=== PATIENT | male | born 1985 | race Caucasian/White ===

== ENCOUNTER 2016-12-29 11:11 | Emergency (ER) | payer OTHER ==
[2016-12-29 11:31] VITALS: BP 134/60
[2016-12-29] MEDS ORDERED: Lidocaine 1% INJ* 10 MG/ML 30 ML SDV INJ ONE (12:29)
[2016-12-29] MEDS ORDERED: Lidocaine 1% MPF* 2 ML VIAL ONE (12:31)
--- NOTE | 2016-12-29 14:38 | UC ---
Ciro Peters Billy, [facility] on 12/29/16 at 1223 . Skin Complaint HPI - HPI Summary HPI Summary: In Room Note: Patient is a 31 year-old male coming to [facility] [place] of a wound on his right arm. He states that approximately 4 days ago, he was sitting on the couch at home and felt a bite on his right upper arm, although he is unsure what, if anything, bit him at the time. Several days later, he identified two Bold Jumping Spiders coming down from the ceiling above the couch. Since the initial "bite," the right arm has become raised, red, and there is now purulent discharge. The patient denies any fever. He states that his skin feels like a sunburn. He was recently prescribed amoxicillin following a dental procedure, and he has taken 4 doses in the last 2 days. Note: Temperature 100.4F. BP 134/60. Pulse ox 90% O2 sat. Previous visits noncontributory to current complaint. Patient is not on anti-hypertension medication. Nurse's Note: Pt states on approx 12/26/16, pt felt a prick in his right upper arm and is unsure of what bit him. Pt states he notice 2 other spiders in the same spot that he identified as Bold Jumping Spider. Pt states the bite blaze has raised, getting larger, reder and now has puss. Pt denies fever. Pt states his arm feels like a sunburn. Pt states he started taking left over amxoicillian from having tooth pulled. - History of Current Complaint Chief Complaint: UCWounds Time Seen by Provider: 12/29/16 12:16 Stated Complaint: BUG BITE-BIG LUMP Hx Obtained From: Patient Onset/Duration: Gradual Onset, Lasting Days, Still Present Skin Exposure Onset/Duration: Days Ago Timing: Constant Onset Severity: Moderate Current Severity: Moderate Pain Intensity: 2 Pain Scale Used: 0-10 Numeric Location: Other - Right upper arm Character: Pruritus, Redness, Raised, Painful Aggravating: Nothing Alleviating: Nothing Associated Signs & Symptoms: Negative: Fever - Allergy/Home Medications Allergies/Adverse Reactions: Allergies Allergy/AdvReac Type Severity Reaction Status Date / Time Theodorine Sprinkles Allergy Unknown Uncoded 12/29/16 11:31 Reaction Details Home Medications: Home Medications Amoxicillin (*) [Amoxicillin 875 MG (*)] 1 tab PO Q6HR 12/29/16 [History Confirmed 12/29/16] Review of Systems Constitutional: Negative Skin: Other - PURULENT WOUND WITH SURROUNDING ERYTHEMA Eyes: Negative ENT: Negative Respiratory: Negative Cardiovascular: Negative Gastrointestinal: Negative Genitourinary: Negative Motor: Negative Neurovascular: Negative Musculoskeletal: Negative Neurological: Negative Psychological: Negative All Other Systems Reviewed And Are Negative: Yes PMH/Surg Hx/FS Hx/Imm Hx Respiratory History Of: Reports: Asthma - - Surgical History Surgical History: Yes Surgery Procedure, Year, and Place: right wrist repair - Family History Known Family History: Positive: Hypertension - Social History Occupation: Employed Full-time - [employer] Alcohol Use: Occasionally Substance Use Type: None Smoking Status (MU): Never Smoked Tobacco Physical Exam Triage Information Reviewed: Yes Appearance: Well-Appearing, No Pain Distress, Well-Nourished Vital Signs: Initial Vital Signs Temp 100.4 F 12/29/16 11:25 Pulse 90 12/29/16 11:25 Resp 14 12/29/16 11:25 BP 134/60 12/29/16 11:25 Pulse Ox 100 12/29/16 11:25 Vital Signs Reviewed: Yes Eyes: Positive: Conjunctiva Clear ENT: Positive: Hearing grossly normal, Pharynx normal, TMs normal. Negative: Muffled/hoarse voice Neck: Positive: Supple, No Lymphadenopathy Respiratory: Positive: Chest non-tender, Lungs clear, Normal breath sounds, No respiratory distress Cardiovascular: Positive: RRR, No Murmur Abdomen Description: Positive: Nontender, No Organomegaly, Soft Bowel Sounds: Positive: Present Musculoskeletal: Positive: Strength Intact, ROM Intact Neurological: Positive: Alert Psychological: Positive: Age Appropriate Behavior Skin Exam: Other - ON THE UPPER RIGHT ARM, MIDWAY BETWEEN THE ELBOW AND THE SHOULDER, THERE IS A 2 CM BITE SITE THAT HAS BECOME A LOCALIZED ABSCESS. THERE IS SURROUNDING ERYTHEMA THAT EXTENDS TO JUST BELOW THE DELTOID MUSCLE AND TO WITHIN 3 FINGER BREATHS OF THE OLECRANON. THE AREA IS WARM AND MILDLY TENDER. THERE IS NO AXILLARY ADENOPATHY OR ASCENDING RED STREAKS CONSISTENT WITH LYMPHANGITIS. THE AREA CLEARLY NEEDS TO BE INCISED AND DRAINED. Course/Dx - Course Course Of Treatment: Medications have been included in the original chart and reviewed. Patient is Urgent/Emergent. BP elevated due to current condition w/o HTN in PMH. This is a 31 year-old male who comes [place] [facility] [place] a purulent wound on the right upper arm. Vital signs noted. The wound was opened and drained, and the drainage was sent for cultures. He will be discharged home with antibiotics, and he was instructed to either return here or to visit the ED with worsening symptoms. - Diagnoses Provider Diagnoses: 1) ABSCESS RIGHT UPPER ARM. 2) LOCALIZED CELLULITIS. Procedures - Procedure Summary Procedure Summary: THE AREA OF THE ABSCESS ON THE UPPER RIGHT ARM WAS CLEANED WITH BETADINE PRIOR TO DRAINAGE AND INJECTED TO 1CC OF LIDOCAINE WITHOUT EPINEPHRINE. WITH AN 11 BLADE, THE ABSCESS WAS OPENED AND 1 ML OF PUS WAS EXTRACTED. THE EXTRACTED PURULENT DRAINAGE WAS SENT FOR CULTURES. THE AREA WAS CLEANED AND DRESSED. Discharge - Discharge Plan Condition: Stable Disposition: HOME Prescriptions: Cephalexin CAP* [Keflex CAP*] 500 mg PO TID #20 cap Sulfamethox/Trimethoprim DS* [Bactrim DS 800/160 TAB*] 1 tab PO BID #20 tab Patient Education Materials: Cellulitis (ED), Abscess (ED) Referrals: [facility] [Outside] Additional Instructions: Thank you for helping us improve patient care by filling out the [employer] Survey. WE DISCUSSED: You have a an abscess and cellulitis of your upper right arm. This may be caused by a spider bite. The abscess has been opened and will be cultured. Warm moist soaks for 10 minutes, 6 times a day for the next 2-4 days. Begin Keflex and Septra antibiotics for 10 days. Watch for increasing redness, pain, swelling, temperature. Re check with me in 2 days or GO TO ED if condition is getting a lot worse. The documentation as recorded by the Ciro mitchell Billy accurately reflects the service I personally performed and the decisions made by me, Bryn Hung MD.
== END 2016-12-29 13:17 | disposition home or self-care (01) ==
LOC: UCEAST 11:11
DX: L02.413 Cutaneous abscess of right upper limb (principal); L03.113 Cellulitis of right upper limb
CPT/HCPCS: 10060; 87070; 87205; 87640; 87641; 99212; G0463; J2001